=== PATIENT | female | born 1970 | race Asian ===

== ENCOUNTER 2016-10-03 09:22 | Outpatient (CLI) | payer OTHER | END 2016-10-03 23:59 | DX: D64.9 Anemia, unspecified (principal); N92.1 Excessive and frequent menstruation with irregular cycle ==

== ENCOUNTER 2016-10-10 08:00 | Outpatient (CLI) | payer OTHER | END 2016-10-10 23:59 | DX: D64.9 Anemia, unspecified (principal) ==